=== PATIENT | female | born 1960 | race Caucasian/White ===

== ENCOUNTER 2018-06-16 08:50 | Day surgery (SDC) | payer BC ==
[~2018-06-16] VITALS: Ht 175.3 cm; Wt 102.1 kg
--- NOTE | ~2018-06-16 | OR ---
[facility] [address] [place] [place], [place] [address] Draft DATE OF OPERATION: 06/16/2018 SURGEON: Elmer Flower DPM PREOPERATIVE DIAGNOSIS: Diabetic ulcer with abscess/cellulitis, left foot. POSTOPERATIVE DIAGNOSIS: Diabetic ulcer with abscess/cellulitis, left foot. PROCEDURE PERFORMED: Deep debridement, left foot. PATTERN CARRIER SURGEON: Denae Pérez DPM ANESTHESIA: IV general with local block left foot using 14 mL, 1:1 mixture 2% lidocaine plain with 0.5% ropivacaine plain. PRECISION GRINDER EXTERNAL: Lele Ball. SPECIMEN TO PATHOLOGY: Aerobic and anaerobic cultures of the deep wound site, left foot. DESCRIPTION OF PROCEDURE: The patient was brought into the operating room and placed on table in the supine position. Anesthesia department administered IV sedation after which a local block was given to the left foot as indicated. The left foot was then prepped and draped in the usual sterile manner and an Esmarch was used for hemostasis. Attention was initially directed to the ulcer site at the web space between hallux and 2nd digit. The ulcer site was probed and noted to communicate with a plantar ulcer at the 2nd metatarsal head area and incision was then made connecting the two ulcer sites revealing a large amount of necrotic tissue within the foot. The incision was then also extended from the ulcer at the web space between hallux and 2nd digit dorsally onto the 1st intermetatarsal space, creating an open area from dorsal to plantar through the foot. Using hand instrumentation, a large amount of necrotic tissue was debrided, then intermittently irrigated with the power lavage, and then additional debridement PATIENT NAME: ASIYA ERIC OPERATIVE REPORT DATE OF : 64 REPORT #: [id number] PHYSICIAN: ELMER FLOWER DPM PCP: JOSE LUIS MIRELES REPORT IS CONFIDENTIAL AND NOT TO BE RELEASED WITHOUT AUTHORIZATION [facility] [address] [place] [place], [place] [address] Draft performed as necessary. The surgical site was then inspected again for any additional necrotic tissue and a small amount of purulent drainage noted within the plantar aspect of the wound from a proximal direction. Another ulcer site was present on the plantar aspect of the foot proximal to 1st metatarsal head, this was then connected to the proximal end of the plantar incision opening the plantar aspect further proximally where additional necrotic tissue was found. Necrotic tissue was also throughout the area under 1st metatarsal head and 2nd metatarsal head and extending out to base of 2nd digit and hallux. The incision was also extended a little further on the dorsum of the foot to fully expose area of necrotic tissue dorsally as well. At this time, the remainder of the power irrigation was used to fully irrigate the debrided wound site. A total of 3 L of irrigation was used and at this point necrotic tissue appeared to be eliminated and wound site was ready for closure and dressing. The plantar and dorsal aspects of the incision were loosely closed with 3-0 nylon monofilament suture using a few simple interrupted sutures. The incision was left entirely open between the 1st and 2nd digits, only dorsal and plantar aspects were closed. The calcium sulfate beads were used with the addition of vancomycin using approximately one-third of a gram of vancomycin in the calcium sulfate bead mixture and several of the antibiotic beads were added to the wound site prior to placement of the dressings. INTRAOPERATIVE COMPLICATIONS: None. ESTIMATED BLOOD LOSS: Less than 50 mL. Dressings were applied using Adaptic dorsally and plantarly, covered with dry gauze and dry gauze in between hallux and 2nd digit. An ABD pad also added to the plantar aspect of the foot, then secured with lexicon and Coban. The patient tolerated the procedure and the anesthesia well and left the operating room with vital signs stable. The left 2nd digit was very dark and dusky in appearance in the OR, however, in the recovery room, there appeared to be additional and improved color to the toe, but it does appear as though there is significant vascular damage to the 2nd digit. Elmer Flower DPM DFB/MODL PATIENT NAME: ASIYA ERIC OPERATIVE REPORT DATE OF : 64 REPORT #: [id number] PHYSICIAN: ELMER FLOWER DPM PCP: JOSE LUIS MIRELES REPORT IS CONFIDENTIAL AND NOT TO BE RELEASED WITHOUT AUTHORIZATION [facility] [address] [place] [address] Oksana Olvera [address] Draft /[id number] Copies: ~ PATIENT NAME: ASIYA ERIC OPERATIVE REPORT DATE OF : 64 REPORT #: [id number] PHYSICIAN: ELMER FLOWER DPM PCP: JOSE LUIS MIRELES REPORT IS CONFIDENTIAL AND NOT TO BE RELEASED WITHOUT AUTHORIZATION
[~2018-06-16 08:50] MED LIST: ALPHAGAN P5 M1 OPTH; ASPIRIN325 MG PO; CARVEDILOL25 MG PO; CIPRO500 MG PO; CLINDAMYCIN HC300 MG PO; LEVEMIR100 UNIT/1 SUB-Q; LIPITOR40 MG PO; LISINOPRIL20 MG PO; METFORMIN HCL1000 MG PO; NOVOLOG FL100 UNIT/1 SUB-Q; VITAMIN D32000 UNI1 PO
--- NOTE | 2018-06-16 11:09 | NUR ---
HARD IV START. WAS HOT PACKED AND STILL TOOK SEVERAL TIMES TO GET. PRANEETH WELL.
--- NOTE | 2018-06-16 12:17 | NUR ---
BLOOD GLUCOSE 214 HAS HAD ABX. PREOPS GIVEN. VS P 62 R 16 SAT RA 100% BP 151/65. STATES THIS IS FIRST TIME DOESNT FEEL NAUSEATED.
--- NOTE | 2018-06-16 12:55 | NUR ---
PAIN AT 7/10 CRYING MORPHINE 4MG GIVEN IV.
--- NOTE | 2018-06-16 14:13 | NUR ---
HAS BEEN UP TO BATHROOM. HAS BEEN IN AND TOOL MAINTENANCE TECHNICIAN. VERSED GIVEN. RAILS UP AT BEDSIDE.
--- NOTE | 2018-06-16 15:51 | NUR ---
06/16/18 1551 Kristi Duque 1531 PT ARRIVED TO PACU WITH ORAL AIRWAY IN PLACE, RESP EVEN AND UNLABORED. 1536 PT WOKE TO TACTILE STIMULI AND ORAL AIRWAY WAS REMOVED. PT ENCOURAGED TO DEEP BREATH AND COUGH. PT DENIES PAIN AND NAUSEA. 1542 O2 MASK REMOVED. PT REPORTS FOOT IS NUMB AND EDUCAITON GIVEN ON BLOCK. SECOND TOE IS DARK IN COLOR AND SYNTHETIC RESIN OPERATOR REPORTED THIS BASELINE. LEFT FOOT ELEVATED ON PILLOW, PT ABLE TO MOVE FOOT, CMS IN 1ST TOE IS WNL.
== END 2018-06-16 16:20 | disposition home or self-care (01) ==
LOC: OPS 08:50 → DS 08:50 → OPS 11:45 → DS 11:45 → OPS 16:20
PROVIDERS: Podiatrist Foot Surgery
PROC: 0JBR0ZZ Excision of Left Foot Subcutaneous Tissue and Fascia, Open Approach (ICD-10-PCS; principal; 2018-06-16 11:45)
DX: E11.621 Type 2 diabetes mellitus with foot ulcer (principal); L97.523 Non-pressure chronic ulcer of other part of left foot with necrosis of muscle; L03.116 Cellulitis of left lower limb; L02.612 Cutaneous abscess of left foot; E11.40 Type 2 diabetes mellitus with diabetic neuropathy, unspecified; Z79.4 Long term (current) use of insulin; Z79.899 Other long term (current) drug therapy
CPT/HCPCS: 01462; 87070; 87075; 87077; 87186; 87205; J1100; J1885; J2250; J2405; J2704; J2765; J2795; J3010; J3370; J7120

== ENCOUNTER 2018-07-09 05:50 | Day surgery (SDC) | payer BC ==
[~2018-07-09] VITALS: Ht 175.3 cm; Wt 102.1 kg
--- NOTE | ~2018-07-09 | OR ---
[facility] [address] [place], [place] [address] Draft DATE OF OPERATION: 07/09/2018 SURGEON: Elmer Mckeon DPM PREOPERATIVE DIAGNOSIS: Diabetic ulcer with osteomyelitis, left foot. POSTOPERATIVE DIAGNOSIS: Diabetic ulcer with osteomyelitis, left foot. ANESTHESIA: IV general with local block left foot. MUSEUM CURATOR: Cris Angel. SPECIMEN TO PATHOLOGY: Bone and soft tissue from debridement left foot including aerobic and anaerobic cultures. PROCEDURE: Debridement left foot including toes 1-5 left foot and metatarsal heads 1-4 left foot. DESCRIPTION OF PROCEDURE: Attention was initially directed to the base of the toes, left foot where an elliptical incision was made across the base of toes 2-5. The incision was deep to bone and soft tissues were reflected proximally, dorsally, and plantarly to expose the base of the proximal phalanges and to disarticulate the toes at the metatarsophalangeal joints. With this process, the base of the proximal phalanx, left 2nd digit fell apart. The bone at this site was crumbly due to the effect of osteomyelitis. With toes 2-5 disarticulated and removed, the crumbly section of the base of the proximal phalanx left 2nd digit was used for aerobic and anaerobic cultures. Attention was then directed to the hallux. The hallux and the lesser toes were by an open incision between hallux and 2nd digit from a previous debridement procedure. The incision was made around the hallux about the mid shaft of the proximal phalanx and the soft tissues were reflected proximally to expose the metatarsophalangeal joint. The toe was then disarticulated and the hallux then removed entirely. At this stage, the remaining soft tissues were evaluated, a large amount of necrotic tissue noted around the metatarsophalangeal joint, mainly joints 1-4. Soft tissue debridement was begun at this point and soft tissues were reflected additionally proximally to further expose the distal aspect of the metatarsals. PATIENT NAME: ASIYA ERIC OPERATIVE REPORT DATE OF : 64 REPORT #: [id number] PHYSICIAN: ELMER MCKEON DPM PCP: JOSE LUIS MIRELES REPORT IS CONFIDENTIAL AND NOT TO BE RELEASED WITHOUT AUTHORIZATION [facility] [address] [place], [place] [address] Draft A preoperative MRI had shown not only was osteomyelitis present to all of the toes, but also to the metatarsals 1-4 involving a small amount of the 1st metatarsal head, 22 mm of the distal 2nd metatarsal, then metatarsal heads 3 and 4. Following this evaluation, this portion of the metatarsal heads were resected. This noted to provide solid unaffected appearing bone to the osteotomy areas, which should provide a good result for the debridement. The surgical site then irrigated with copious amounts of normal saline. Additional debridement performed again because of a large amount of necrotic tissue noted particularly within the plantar space under the metatarsals, but no kanika purulence or odor noted. Following additional debridement, irrigation was then used again and inspection made for any additional necrotic tissue or exposed tendon, which was then resected as well as plantar plate structures from the metatarsal head area and the sesamoid apparatus from the 1st metatarsal area. A total of 3 L of power irrigation was used. At this time, surgical site was closed. Modification was made to the skin margins to assist with closure, but the skin margins were able to be closed without tension on the skin margins and this was closed nearly entirely a small area of incision was left open. This was the dorsal portion of the previous incision between 1st and 2nd metatarsals. This area was then used for quarter-inch plain Nu Gauze packing. Calcium sulfate antibiotic beads were also used within the surgical site prior to closure and surgical sites were closed with 3-0 nylon monofilament suture. Dressings applied consisting of Adaptic, Betadine-soaked gauze, dry gauze, Kerlix fluffs, lexicon, and an ABD pad with Coban for compression and to secure the dressings. INTRAOPERATIVE COMPLICATIONS: None. ESTIMATED BLOOD LOSS: Less than 20 mL. The patient tolerated the procedure and the anesthesia well and left the operating room with vital signs stable. Elmer Mckeon DPM DFB/MODL /[id number] PATIENT NAME: ASIYA ERIC OPERATIVE REPORT DATE OF : 64 REPORT #: [id number] PHYSICIAN: ELMER MCKEON DPM PCP: JOSE LUIS MIRELES REPORT IS CONFIDENTIAL AND NOT TO BE RELEASED WITHOUT AUTHORIZATION [facility] [address] [place] [id number] Draft Copies: ~ PATIENT NAME: ASIYA ERIC OPERATIVE REPORT DATE OF : 64 REPORT #: [id number] PHYSICIAN: ELMER MCKEON DPM PCP: JOSE LUIS MIRELES REPORT IS CONFIDENTIAL AND NOT TO BE RELEASED WITHOUT AUTHORIZATION
[~2018-07-09 05:50] MED LIST changes: +AMOX TR-K CLV1 EACH PO; +DOXYCYCLINE HY100 MG; +ONDANSETRON ODT8 MG PO
--- NOTE | 2018-07-09 09:22 | NUR ---
PT IS RESTING-ALERT, ORIENTED AND SUPPORTED BY HER SLOANE. SHE SEEMED INFORMED, SLOANE WELL. PT REQUESTED PRAYER, WILL FOLLOW NEEDED
--- NOTE | 2018-07-09 09:51 | NUR ---
07/09/18 0950 Ramandeep Bellamy 0936 PATIENT ARRIVES TO PACU AWAKE, BUT DROWSY, REPORTS MINIMAL PAIN. RESP EVEN AND UNLABORED, ARRIVES TO PACU ON ROOM AIR AT 99%. PATIENT HAS BULKY DRESSING WITH COBAN TO LEFT FOOT, DRESSING DRIPPING BLOOD AND A STEADY RATE, DR FLOWER TO BEDSIDE WITH DRESSING REINFORCED WITH MORE COBAN. FOOT ELEVATED. 0950 PATIENT RESTING WITH EYES CLOSED. AWAKE OFF/ON. PATIENT DENIES PAIN OR NAUSEA. BLEEDING CONTROLLED TO LEFT FOOT.
--- NOTE | 2018-07-09 10:36 | NUR ---
PT IS BACK TO DS FOR OBSERVATION. PT'S FOOT WAS BLEEDING POST-OP IN RECOVERY. DR. FLOWER WOULD LIKE PT TO HANG OUT FOR ABOUT AN HOUR THEN REDRESS THE AREA AND OBSERVE FOR ACTIVE BLEEDING. PT IS TOLERATING SIPS OF WATER. WILL REASSESS WITHIN THE HOUR.
--- NOTE | 2018-07-09 11:37 | NUR ---
DRESSING IS TAKEN DOWN TO ASSESS IF THE SITE IS STILL ACTIVELY BLEEDING. THERE IS SOME LIGHT PINK DRAINAGE, NOTHING SIGNIFICANT. NEW ADAPTIC IS PLACED OVER SUTURES, FOLLOWED BY GAUZE, FLEXICON, ABD PAD, KERLEX, CAST PADDING, AND COBAN. DR. FLOWER IS CALLED, LEFT MESSAGE WITH MANAGER SCIENTIFIC TO HAVE HIM CALL ME BACK.
--- NOTE | 2018-07-09 13:06 | NUR ---
LE 1210: PT HAS MET DC CRITERIA. DR. FLOWER IS GIVEN REPORT ON WHAT WAS FOUND DURING DRESSING CHANGE AND HE IS AREEABLE THAT SHE SHOULD GO HOME. HE ASKS TO EMPHASIZE THAT THE PT DO NOT PUT ANY WEIGHT ON THAT FOOT TO PREVENT IT FROM REBLEEDING. DC INSTRUCTIONS ARE GIVEN TO THE PT WITH THE IN THE ROOM. THEY BOTH VERBALIZE UNDERSTANDING. SHE AND ARE EDUCATED ON HOW BEST TO DRESS. PASTOR DAWSON STOPS BY TO VISIT BEFORE SHE IS TAKEN HOME. SHE IS THEN TAKEN TO THE VEHICLE VIA WHEELCHAIR AND HELPED INTO THE CAR.
== END 2018-07-09 12:50 | disposition home or self-care (01) ==
LOC: DS 05:50
PROVIDERS: Podiatrist Foot Surgery
PROC: 0Y6Y0Z0 Detachment at Left 5th Toe, Complete, Open Approach (ICD-10-PCS; 2018-07-09)
PROC: 0Y6W0Z0 Detachment at Left 4th Toe, Complete, Open Approach (ICD-10-PCS; 2018-07-09)
PROC: 0Y6U0Z0 Detachment at Left 3rd Toe, Complete, Open Approach (ICD-10-PCS; 2018-07-09)
PROC: 0Y6S0Z0 Detachment at Left 2nd Toe, Complete, Open Approach (ICD-10-PCS; 2018-07-09)
PROC: 0Y6Q0Z0 Detachment at Left 1st Toe, Complete, Open Approach (ICD-10-PCS; principal; 2018-07-09 06:45)
DX: E11.69 Type 2 diabetes mellitus with other specified complication (principal); M86.172 Other acute osteomyelitis, left ankle and foot; E11.621 Type 2 diabetes mellitus with foot ulcer; L97.523 Non-pressure chronic ulcer of other part of left foot with necrosis of muscle; E66.9 Obesity, unspecified; L03.116 Cellulitis of left lower limb; E11.40 Type 2 diabetes mellitus with diabetic neuropathy, unspecified; Z79.2 Long term (current) use of antibiotics; Z79.4 Long term (current) use of insulin; Z68.33 Body mass index [BMI] 33.0-33.9, adult; Z79.891 Long term (current) use of opiate analgesic; Z79.899 Other long term (current) drug therapy
CPT/HCPCS: 01482; 73630; C1713; J1100; J1885; J2250; J2405; J2704; J2795; J3010; J3370; J7050; J7120

== ENCOUNTER 2020-10-23 01:57 | Emergency (ER) | payer OTHER ==
[~2020-10-23] VITALS: Ht 175.3 cm; Wt 102.1 kg
[~2020-10-23 01:57] MED LIST changes: +ASPIR 8181 MG PO; +IRON325 M1 PO
[2020-10-23] MEDS ORDERED: ASPIRIN325 MG PO (03:13)
--- NOTE | 2020-10-24 11:09 | EKG ---
[facility] [address] [facility] [place] [address] Signed Normal sinus rhythm Nonspecific intraventricular block Cannot rule out Inferior infarct , age undetermined Abnormal ECG When compared with ECG of 27-JUN-2018 10:30, Minimal criteria for Inferior infarct are now present QT has lengthened Confirmed by MARIO ALBERTO MCFARLAND MD ([id number]) on 10/24/2020 11:09:02 AM Electronically Signed By: MARIO ALBERTO MCFARLAND MD 10/24/20 1109 PATIENT NAME: ASIYA ERIC Electrocardiogram DATE OF : 64 PHYSICIAN: MARIO ALBERTO MCFARLAND MD REPORT #: [id number] REPORT IS CONFIDENTIAL AND NOT TO BE RELEASED WITHOUT AUTHORIZATION
== END 2020-10-23 04:49 | disposition short-term general hospital (02) ==
LOC: ED 01:57
DX: I62.00 Nontraumatic subdural hemorrhage, unspecified (principal); R56.9 Unspecified convulsions; D69.6 Thrombocytopenia, unspecified; I10 Essential (primary) hypertension; I25.2 Old myocardial infarction; E11.9 Type 2 diabetes mellitus without complications; Z79.899 Other long term (current) drug therapy; Z79.82 Long term (current) use of aspirin; Z79.4 Long term (current) use of insulin
CPT/HCPCS: 51702; 70450; 71045; 80053; 81001; 85025; 85610; 85730; 93005; 93010; 99285-25; C9803; G0480; J1953; J2405; J7060; U0003

== ENCOUNTER 2021-02-01 12:05 | Inpatient (IN) | payer OTHER ==
[~2021-02-01] VITALS: Ht 175.3 cm; Wt 100.0 kg
--- NOTE | 2021-02-01 12:32 | NUR ---
RT COLLECTED COVID 19 SWAB WITH NO COMPLICATIONS. RT USED THE CEPHEID RAPID TEST THROUGH [facility] PER DR REQUEST AT THIS TIME.
[2021-02-01] MEDS ORDERED: LEVOTHYROXINE112 MC1 PO (13:13)
[2021-02-01] MEDS ORDERED: KEPPRA500 MG PO (13:14)
[2021-02-01] MEDS ORDERED: PROZAC20 MG PO (13:14)
[2021-02-01] MEDS ORDERED: VITAMIN C WITH500 MG PO (13:15)
[2021-02-01] MEDS ORDERED: COQ-10100 MG (13:15)
[2021-02-01] MEDS ORDERED: ALDACTAZIDE 251 EACH PO (13:16)
[2021-02-01] MEDS ORDERED: ZIAC 2.5-6.25 MG1 EA PO (13:16)
--- NOTE | 2021-02-01 14:53 | NUR ---
02/01/21 1452 Ramandeep Bellamy 1447 PATIENT ARRIVES TO PACU UNRESPONSIVE TO PAIN. ORAL AIRWAY IN PLACE. RESP EVEN AND UNLABORED, MASK AT 6 LITERS.
--- NOTE | 2021-02-01 15:50 | NUR ---
PATIENT ARRIVED AT 1530. REPORT RECIEVED FROM JOSE PACU, RN. DR. WINKLER NOTIFIED THAT PATIENT IS ON MED SURG. DR. FLOWER IS ALSO ON MED SURG. PATIENT IS RESTING IN BED WITH RIGHT FOOT ELEVATED ON 2 PILLOWS. RIGHT FOOT DRESSING IS CDI.
--- NOTE | 2021-02-01 15:56 | NUR ---
DR. FLOWER IN TO SEE PATIENT BRIEFLY. DR. WINKLER IN TO SEE PATIENT.
--- NOTE | 2021-02-01 16:00 | NUR ---
PATIENT ASSESSMENT pt assessment complete, VSS. pt alert and oriented x4. pt discussing cares with MD Hurd at this time. pt o2sat at 100% on 2L NC. pt titrated down to RA and maintaining 100%. pt in bed, table and call light within reach. at bedside.
[2021-02-01] MEDS ORDERED: AUGMENTIN 875-1 EACH PO (16:11)
[2021-02-01] MEDS ORDERED: PROZAC10 MG PO (16:19)
--- NOTE | 2021-02-01 16:30 | NUR ---
HOURLY VITALS + ROUNDING pt in bed, visiting with and watching TV. pt breathing even and unlabored, VSS, and o2sat 95% on RA. pt denies pain and nausea at this time. table and call light within reach.
[2021-02-01] MEDS ORDERED: CLEOCIN HCL300 MG PO (17:15)
--- NOTE | 2021-02-01 17:18 | NUR ---
MED REC COMPLETE
--- NOTE | 2021-02-01 17:30 | NUR ---
HOURLY VITALS + MED PASS pts CBG was 306, 9 units given per sliding scale orders. pt VSS. pt given jello and crackers to start trying foods slowly. pt encouraged to take them slow, and to call with nausea. pt does not want to order anything for dinner. pt in bed, table and call light within reach.
--- NOTE | 2021-02-01 19:31 | NUR ---
BEDSIDE REPORT RECEIVED FROM CARLITA YANG. pt SITTING UP IN BED. RIGHT LEG ELEVATED. SCD ON LEFT LEG. REQUESTING SANDWICH BOX. BRANCH OPERATIONS MANAGER NOTIFIED AND CALLING LINTER TENDER. NO ADDITIONAL REQUESTS.
--- NOTE | 2021-02-01 20:00 | NUR ---
DELIVERED SANDWICH BOX TO ROOM PER PRIMARY RN'S REQUEST. PT DENIES FURTHER NEEDS OR CONCERNS AT THIS TIME. CALL LIGHT IS CLOSE.
--- NOTE | 2021-02-01 20:41 | NUR ---
pt ASSESSMENT COMPLETE. VSS. pt DENIES ANY PAIN. NUMBNESS IN PARTS OF RIGHT FOOT, SENSATION IN TOES PER pt. CAP REFILL <3. pt DENIES NAUSEA. SCHEDULED MEDICATIONS ADMINISTERED. IV SITE FLUSHED WNL. IV ANTIBIOTIC INFUSING. CALL LIGHT IN REACH. RIGHT LEG ELEVATED. SCD ON LEFT LEG.
--- NOTE | 2021-02-01 23:36 | NUR ---
CHECKED ON pt. RESTING IN BED ON RIGHT SIDE. RIGHT LEG ELEVATED ON PILLOWS. EYES CLOSED, BREATHING UNLABORED.
--- NOTE | 2021-02-02 02:10 | NUR ---
CALL LIGHT ANSWERED. 1P SBA TO PIVOT TO BSC WITH FWW FOR VOID AND SMALL FORMED BROWN BM. pt NON-WEIGHT BEARING ON RIGHT FOOT. BACK IN BED, ABLE TO REPOSITION SELF INDEPENDENTLY. SCD ON LEFT LEG. RIGHT LEG ELEVATED ON PILLOWS. IVF ANTIBIOTIC INFUSING WNL ORDERED. pt C/O 2/10 THROBBING IN RIGHT FOOT, "DULL" WHEN ELEVATED ON PILLOWS. VSS. CALL LIGHT IN REACH. LIGHTS OFF IN ROOM.
--- NOTE | 2021-02-02 06:50 | NUR ---
pt AWAKE WATCHING TV IN BED. VSS. pt PROVIDED WITH BREAKFAST MENU. STATES SHE WILL LOOK AT MENU THEN GET UP TO RESTROOM. CALL LIGHT IN REACH.
--- NOTE | 2021-02-02 07:30 | NUR ---
SHIFT REPORT FROM JANNA ZAZUETA INCLUDED: pt had an episode of pain that was tx with tylenol and resolved through the rest of the night and she slept well. pt had an otherwise uneventful evening. uses call light appropriately, and voided sufficient quantities. pt currently in bed, denies pain and nausea at this time. table and call light within reach.
--- NOTE | 2021-02-02 08:30 | NUR ---
ROUNDING pt enjoying the last of her breakfast and visiting with her . pt denies needs at this time. table and call light within reach.
--- NOTE | 2021-02-02 09:30 | NUR ---
ROUNDING pt watching TV and visiting with her . pt denies needs at this time. table and call light within reach.
--- NOTE | 2021-02-02 10:00 | NUR ---
ROUNDING pt lying in bed, visiting with . pt denies pain and nausea at this time. pt denies further needs. table and call light within reach.
--- NOTE | 2021-02-02 11:30 | NUR ---
CBG pts CBG was 273, 7 units due. pt denies further needs at this time. pt in bed, table and call light within reach.
--- NOTE | 2021-02-02 12:30 | NUR ---
ROUNDING pt eating lunch with her at this time. denies pain, nausea, and needs. table and call light within reach.
--- NOTE | 2021-02-02 13:12 | NUR ---
PATIENT SITTING UP IN BED WATCHING TV. SPOUSE AT BEDSIDE. VITALS AND I&OS DOCUMENTED. PATIENT REFUSED SHOWER TODAY. CALL LIGHT IN REACH. NO FURTHER NEEDS AT THIIS TIME.
--- NOTE | 2021-02-02 13:30 | NUR ---
ROUNDING pt resting in bed at this time. breathing even and unlabored, reports needs at this time. table and call light within reach.
--- NOTE | 2021-02-02 14:30 | NUR ---
MED PASS pt resting in bed at this time. able to wake for med pass. pt getting IV ABX infusion as ordered. pt reports 3/10 pain and denies nausea. pt reports no needs at this time. table and call light within reach.
--- NOTE | 2021-02-02 15:17 | NUR ---
ROUNDING pt in bed, eyes closed, breathing even and unlabored, table and call light witin reach.
--- NOTE | 2021-02-02 17:20 | NUR ---
MED PASS + CBG pts CBG was 206, 5 units insulin administered per sliding scale orders. pt also getting scheduled atorvastatin. pt able to take all meds without difficulty. pt denies needs at this time. pt anticipating dinner. table and call light within reach.
--- NOTE | 2021-02-02 19:05 | NUR ---
SHIFT REPORT RECEIVED FROM TREY ZAZUETA. PT UP IN CHAIR WATCHING TV. DENIES PAIN. NO NEEDS AT THIS TIME. CALL LIGHT IN REACH.
--- NOTE | 2021-02-02 20:45 | NUR ---
ASSESSMENT COMPLETED. SCHEDULED MEDS PROVIDED. PT DENIES PAIN. SHE HAS NUMBESS IN BOTH FEET, PULSE AND MOTOR INTACT. RLE DRESSING CDI. GCS 15, A&O X4. LUNGS CLEAR, HEART TONES REGULAR. ABD SOFT, NONTENDER, BOWEL TONES ACTIVE. CMS INTACT IN BUE. IV WNL, CDI, FLUSHED WELL. ICE WATER PROVIDED. NO OTHER NEEDS AT THIS TIME. CALL LIGHT IN REACH.
--- NOTE | 2021-02-03 | NUR ---
PT RESTING IN BED, EYES CLOSED. RR EVEN, UNLABORED. CALL LIGHT IN REACH.
--- NOTE | 2021-02-03 00:55 | NUR ---
IN TO SBA PT WITH FWW TO THE TOILET NO FURTHER NEEDS AT THIS TIME
--- NOTE | 2021-02-03 02:30 | NUR ---
SCHEDULED MED PROVIDED. ASSESSMENT COMPLETED. PT DENIES PAIN. NUMBNESS PRESENT IN FEET. MOTOR AND PULSE INTACT. DRESSING CDI. NO OTHER NEEDS. CALL LIGHT IN REACH.
--- NOTE | 2021-02-03 05:19 | NUR ---
PT UP TO BR, FWW, BACK TO BED. SCHEDULED MED PROVIDED. RLE PAIN 12/09, PRN PAIN MED PROVIDED. ICE WATER PROVIDED. VS AND I&O COMPLETED. NO OTHER NEEDS. CALL LIGHT IN REACH.
--- NOTE | 2021-02-03 07:30 | NUR ---
SHIFT REPORT FROM ZANE ZAZUETA INCLUDED: pt had an uneventful evening. pts VSS. pt slept most of the night. pt currently in bed, table and call light within reach.
--- NOTE | 2021-02-03 09:00 | NUR ---
MED PASS + ASSESSMENT pt assessment complete, VSS. pt denies pain and nausea. pt able to take all meds as ordered. pt denies further needs at this time. table and call light within reach.
--- NOTE | 2021-02-03 10:00 | NUR ---
ROUNDING pt in bed, visiting with family. pt reports 0/10 pain and denies nausea. pt denies further needs at this time. table and call light within reach.
--- NOTE | 2021-02-03 10:03 | NUR ---
PATIENT IS SITTING UP IN HER CHAIR USING HER TABLET. FRESH ICE WATER OFFERED. VITALS AND I&OS ARE DONE AND DOCUMENTED. CALL LIGHT IS IN REACH. NO FURTHER NEEDS AT THIS TIME.
--- NOTE | 2021-02-03 12:00 | NUR ---
ROUNDING pt given fresh water. pt was given 5 units of insulin per sliding scale. pt in bed, visiting with family. pt reports 0/10 pain and denies nausea. pt denies further needs at this time. table and call light within reach.
--- NOTE | 2021-02-03 15:00 | NUR ---
ASSUMED CARE OF PT AT THIS TIME.
--- NOTE | 2021-02-03 15:07 | NUR ---
PT IS LARA SITTING UP IN ROOM VISITING WITH , ASKED IF SHE CAN HAVE TYLENOL FOR 2/10 PAIN IN FOOT, STATES SHE IS EXPECTING DR FLOWER TO BE IN THIS AFTERNOON. DENIES FURTHER NEEDS. CALL LIGHT IN EASY REACH.
--- NOTE | 2021-02-03 17:26 | NUR ---
PATIENT IS SITTING UP IN BED WATCHING TV. AT BEDSIDE. FRESH WATER GIVEN. VITALS AND I&OS ARE DONE AND DOCUMENTED. CALL LIGHT IS IN REACH. NO FURTHER NEEDS AT THIS TIME.
--- NOTE | 2021-02-03 19:05 | NUR ---
SHIFT REPORT RECEIVED FROM DAYSNYFT CARLITA HOWARD AT BEDSIDE. pt AWAKE AND RESTING IN CHAIR, SALINE LOCKED. RIGHT FOOT DRESSING C/D/I, ABD PAD, CAST PADDING, AND COBAN NOTED. pt DENIES NEEDS OR CONCERNS, CALL LIGHT IN REACH. INDEPENDENT IN ROOM.
--- NOTE | 2021-02-03 20:56 | NUR ---
ROUNDED CHARGE. VSS. SBA WITH FWW TO RESTROOM FOR VOID AND BACK TO CHAIR. LEGS ELEVATED. pt DENIES PAIN AT THIS TIME. CALL LIGHT WITHIN REACH. TRAY TABLE CLEARED. NO ADDITIONAL REQUESTS AT THIS TIME.
--- NOTE | 2021-02-03 21:00 | NUR ---
ASSESSMENT COMPLETE, SCHEDULED MEDS GIVEN. ACCUCHECK RESULT:[id number]. INSULIN SS AND HS LANTUS DOUBLE CHECKED WITH SHAYY SALDIVAR. pt VERBALIZES UNDERSTANDING REGARDING S/SX OF HYPOGLYCEMIA, pt UNDERSTANDS TO CALL IF S/SX APPEAR. RLE DRESSING UNCHANGED SINCE START OF SHIFT, C/D/I. UNABLE TO ASSESS PEDAL PULSE D/T DRESSING, SKIN WARM TO THE TOUCH AND PINK IN COLOR. pt REPROTS BASELINE NUMBNESS AND TINGLING IN BLE R/T NEUROPATHY, ABLE TO WIGGLE TOUCH AND FEEL WHEN FOOT/TOES ARE TOUCHED. VSS, DENIES PAIN AND NAUSEA. NO FURTHER NEEDS, CALL LIGHT IN REACH. RESTING IN CHAIR.
--- NOTE | 2021-02-03 21:24 | NUR ---
IN ROOM TO COSIGN INSULIN. pt INDEPENENT BACK TO BED FROM CHAIR. REFUSING SCD AT THIS TIME STATES "I FEEL TOO ATTACHED WHEN I SLEEP". FEET ELEVATED ON PILLOWS IN BED. CALL LIGHT IN REACH. NO ADDITIONAL REQUESTS.
--- NOTE | 2021-02-03 23:22 | NUR ---
RESTING QUIETLY IN BED, pt FACING WINDOW. RR EVEN AND UNLABORED, NO DISTRESS NOTED. CALL LIGHT IN REACH.
--- NOTE | 2021-02-04 01:27 | NUR ---
pt RESTING IN BED, EYES CLOSED WITH EVEN AND UNLABORED RESPIRATIONS. NO DISTRESS NOTED. CALL LIGHT IN REACH. RLE ELEVATED IN BED.
--- NOTE | 2021-02-04 04:25 | NUR ---
SCHEDULED IV VANCO INFUSING PER MD ORDERS, IV SITE WNL. FLUSHES EASILY. pt DROWSY, BUT EASILY AWOKE TO VOICE. ASSESSMENT COMPLETE, NO NEW CHANGES OR CONCERNS. DRESSING TO RLE REMAINS C/D/I, UNABLE TO ASSESS PEDAL PULSE D/T DRESSING. PULSE NOTED TO TOP OF RIGHT BIG TOE, SKIN WARM TO THE TOUCH AND PINK IN COLOR. NO NEEDS VERBALIZED. CALL LIGHT IN REACH.
--- NOTE | 2021-02-04 06:28 | NUR ---
MRI SCREENING FORM COMPLETED AND ATTACHED TO FRONT OF CHART. DR FLOWER IN ROOM TO ASSESS RIGHT FOOT WOUND.
--- NOTE | 2021-02-04 07:10 | NUR ---
BEDSIDE HANDOFF REPORT RECEIVED FROM DIVISION ROADMASTER RN. PT SLEEPING, LEFT UNDISTURBED.
--- NOTE | 2021-02-04 08:15 | NUR ---
PT SITTING IN CHAIR, LEGS ELEVATED. PT ON ROOM AIR, LUNG SOUNDS CLEAR, DENIES SOB. PT STATES PAIN IS FINE THIS MORNING. BOWEL TONES ACTIVE, DENIES NAUSEA, GIVEN 5 UNITS SS HUMALOG FOR BLOOD GLUCOSE 219. IV SALINE LOCKED. PT REPORT OF NUMBNESS IN BLE, HX NEUROPATHY, AT BASELINE. DRESSING TO RIGHT FOOT, CDI, BRISK CAP REFILL, UNABLE TO ASSESS PEDAL PULSE. VSS. DISCUSSED PLAN OF CARE FOR THE DAY, PLAN FOR MRI AND PT WOULD LIKE TO SHOWER. PT DENIES OTHER NEEDS AT THIS TIME.
--- NOTE | 2021-02-04 09:00 | NUR ---
Spoke with Shira and she states she cont. to live in a modular home on [address] with her spouse. There are 4 steps in and she does not have issues getting in and out. She cont. to work at [employer] and plans on retiring in 2 more years. 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 She does not use [employer] at home. She plans on dc to home when clear ed medically and will cont. to follow up with Dr. Mckeon for podiatry. She has used crutches in the past, but would like a walker to use at home as she is to be primarily nonwt bearing.. She denies financial concerns, is working toward shelter.
--- NOTE | 2021-02-04 09:14 | NUR ---
WENT TO GIVE PT TYLENOL REQUESTED. FOUND PT TO BE THROWING UP IN HER BLANKET. GIVEN EMESIS BAG AND NEW BLANKET. ADMINSITERED ZOFRAN AND HELD TYLENOL FOR NOW. OT WILL COME BACK LATER TO WORK WITH PT. CITY SUPERINTENDENT GAVE WARM WASHCLOTH.
--- NOTE | 2021-02-04 11:22 | NUR ---
PATIENT IS SITTING UP IN HER CHAIR. VITALS AND I&OS ARE DONE AND DOCUMENTED. FRESH WATER GIVEN. CALL LIGHT IS IN REACH. NO FURTHER NEEDS AT THIS TIME.
--- NOTE | 2021-02-04 12:45 | NUR ---
PT RETURNED FROM MRI. LUNCH PROVIDED, PT BLOOD GLUCOSE 236, GIVEN 7 UNITS HUMALOG. PT DENIES OTHER NEEDS AT THIS TIME, VISITING WITH FAMILY.
--- NOTE | 2021-02-04 13:42 | NUR ---
PT ALERT, ORIENTED AND SITTING IN CHAIR. PT IS FRIENDLY, FEELS WELL CARED FOR AND HAS NO QUESTIONS REGARDING POC. HAD PLEASANT VISIT, EXPRRESSED UNHAPPINESS AT HOW THIS WOUND WON'T HEAL, AND KEEPS INTERFERRING WITH HER LIFE AND WORK. HAD PRAYER WITH PT, LEFT G.POST AND BLESSING. WILL FOLLOW
--- NOTE | 2021-02-04 15:54 | NUR ---
IV SITE ASSESSED, PATENT. IV VANCO INFUSING. PT STATES PAIN IS TOLERABLE AT THIS TIME. PT DENIES OTHER NEEDS AT THIS TIME.
--- NOTE | 2021-02-04 17:29 | NUR ---
IV SALINE LOCKED. PT GIVEN 3 UNITS SS HUMALOG FOR BLOOD GLUCOSE 148. DR. BRADLEY TO BEDSIDE AND COMPLETED DRESSING CHANGE.
--- NOTE | 2021-02-04 18:52 | NUR ---
PATIENT IS SITTING IN HER CHAIR. FRESH WATER GIVEN. VITALS AND I&OS ARE DONE AND DOCUMENTED. CALL LIGHT IS IN REACH. NO FURTHER NEEDS AT THIS TIME.
--- NOTE | 2021-02-04 19:05 | NUR ---
SHIFT REPORT FROM NURSE HAMILTON. PT UP IN CHAIR, ON CELL PHONE. DENIES NEEDS AT THIS TIME. CALL LIGHT WITHIN REACH.
--- NOTE | 2021-02-04 20:28 | NUR ---
IN ROOM FOR ASSESSMENT AND EVENING MEDS. pt UP IN CHAIR, LEGS ELEVATED. cbg 162 REQUIRING 3UNITS SS INSULIN. VSS. pt REPORTS NO PAIN. CMS INTACT AT BASELINE. pt DENIES FURTHER NEEDS AT THIS TIME. CALL LIGHT WITHIN REACH.
--- NOTE | 2021-02-04 20:30 | NUR ---
ROUNDED CHARGE TO COSIGN INSULIN. pt GETTING BACK INTO BED AT THIS TIME. NO REQUESTS. CALL LIGHT WITHIN REACH. LEGS ELEVATED ON PILLOWS.
--- NOTE | 2021-02-04 22:00 | NUR ---
IN ROOM TO HANG IV ANTIBITOCS. PT IN BED SLEEPING THIS NURSE ENTERS THE ROOM. PT AWAKES TO VOICE. IV INFUSION INFUSING. CALL LIGHT WITHIN REACH.
--- NOTE | 2021-02-04 23:18 | NUR ---
IN ROOM TO D/C IV ANTIBIOTICS SINCE THEY ARE FINSIHED. pt IS SLEEPING AND AWAKES BRIEFLY TO THIS NURSE TOUCHING LEG. CALL LIGHT WITHIN REACH.
--- NOTE | 2021-02-05 02:56 | NUR ---
CHECKED ON PT. PT WAS JUST GETTING BACK TO BED FROM TOILET. URINE HAT EMPTIED, PT DENIES NEEDS AT THIS TIME.
--- NOTE | 2021-02-05 04:21 | NUR ---
IN ROOM TO HANG ANTIBIOTICS. pt ASLEEP THIS NURSE ENTERED ROOM. pt WAKES TO VOICE. IV INFUSING PER ORDER. NO FURTHER NEEDS AT THIS TIME
--- NOTE | 2021-02-05 06:26 | NUR ---
ASSESSMENT COMPLETE. PT UP TO TOILET TO VOID AND ALSO HAD BM. VSS. WOUND DRESSING INTACT AND CMS INTACT. FLAGYL HUNG AND INFUSING WNL. PT REPORTS NO PAIN AT THIS TIME. CALL LIGHT WITHIN REACH.
--- NOTE | 2021-02-05 07:22 | NUR ---
REPORT RECEIVED FROM CARLITA MATTHEW. PT RESTING IN BED. PT REPORTS DR. FLOWER JUST FINISHED HER DRESSING CHANGE. PT DENIES PAIN AND NAUSEA AT THIS TIME AND IS IN THE PROCESS OF ORDERING BREAKFAST. PT DENIES ADDITIONAL REQUESTS OR COMPLAINTS AT THIS TIME. CALL LIGHT WITHIN REACH.
--- NOTE | 2021-02-05 07:31 | NUR ---
MORNING ASSESSMENT AND MEDICAITON DUE. PT RESTING IN BED WITH HEAD OF BED ELEVATED TO 45 DEGREES. PT DENIES PAIN AND NAUSEA. IV TO RIGHT HAND SHOWS SWELLING AND MILD REDNESS, FLUSES EASILY. PT REPORTS IV WAS SORE WITH VANCOMYACIN INFUSION YESTERDAY. WILL CONSULT MD REGARDING FURTHER NEED FOR IV AND PLACE NEW IV LINE IF NEEDED. ASSESSMENT DONE: PT REPORTS SHE IS GENERALLY STEADY ON FEET BUT WOULD LIKE A WALKER TO TAKE HOME TO EASE AMBULATION. LUNG SOUNDS CLEAR. PT DEMONSTRATES USE OF I.S. REACHING 2000ML. PULSE TO LEFT FOOT STRONG. UNABLE TO ASSESS PULSES TO RIGHT FOOT RELATED TO BANDAGING. BANDAGE TO RIGHT FOOT C/D/I WITH CAP REFILL LESS THAN 2 SECONDS. PT REPORTS SENSATION IN TOES AND IS ABLE TO MOVE TOES. PT REPORTS BASELINE NEUROPATHY. PT DENIES SORNESS IN CALVES. PT UP AND MOVING AROUND FREQUENTLY AND DECLINES USE OF SCD. MEDICATIONS GIVEN. PT REPORTS SHE PLANS TO GET UP TO THE CHAIR ONCE BREAKFAST ARRIVES, DECLINES TIME UP TO CHAIR AT THIS TIME. NO ADDITONAL REQUESTS OR COMPLAINTS AT THIS TIME. CALL LIGHT WITHIN REACH.
--- NOTE | 2021-02-05 09:46 | NUR ---
Met with Shira this morning, she states that she is "very happy" with her care. She feels that she will probably be discharged today, she also feels like she has had good pain managment, and she verbalizes an understanding of the medications given to her while in the hospital. Pt. also feels like she understands what she needs to do upon discharge to be successful at home, and she feels "ready" to go home. Pt denies any dificulty with being able to cotton picker medications or pay for medications needed at discharge. She does not have concerns for meeting her needs of daily living at home per her statements to me during this conversaton. I did leave my card with Shira and encouraged her to call should she have any questions or concerns.
--- NOTE | 2021-02-05 09:54 | NUR ---
THIS RN TO ROOM TO CHECK ON PT. PT UP TO CHAIR WORKING WITH STUDENT RN, ZANE. PT DENIES PAIN AND NAUSEA. PT DENIES REQUESTS OR COMPLAINTS AT THIS TIME STATING SHE IS JUST "WAITING TO HEAR FROM THE DOCTOR IF I CAN GO HOME." CALL LIGHT JU RIVERA. PT ENCOURAGED TO CALL FOR ANY REQUESTS.
--- NOTE | 2021-02-05 10:08 | NUR ---
PATIENT UP IN CHAIR. VITALS AND I&O'S DONE BY STUDENT NURSE. CALL LIGHT IN REACH. NO FURTHER NEEDS AT THIS TIME.
[2021-02-05] MEDS ORDERED: ZYVOX600 MG PO (11:25)
[2021-02-05] MEDS ORDERED: METRONIDAZOLE500 MG PO (11:26)
--- NOTE | 2021-02-05 11:30 | NUR ---
Received Rx from Dr. Florian for walker. Faxed to [facility] per pt's request to H&P, DC summary, and face sheet. Attached note requesting they deliver prior to 4 pm when pt plans on dc.
--- NOTE | 2021-02-05 11:37 | NUR ---
THIS RN TO ROOM TO UPDATE PT ON PLAN OF CARE. PT VERBALIZES UNDERSTANDING OF PLAN FOR DISCHARGE AND STATES HER CAN PICK HER UP AROUND 1500. PT DENIES PAIN AND NAUSEA. IV DC'D PER PROTOCOL, OTIS APPLIED. PHARMACIST TO BEDSIDE TO REVIEW MEDICATIONS WITH PT. PT VERBALIZES UNDERSTANDING OF MEDICATIONS AND STATES HER QUESTIONS HAVE BEEN ANSWERED. NO ADDITIONAL REQUESTS OR COMPLAINTS. CALL LIGHT WITHIN REACH.
--- NOTE | 2021-02-05 12:11 | NUR ---
BLOOD SUGAR TAKEN. PT UP TO DRESS SELF, NO ASSISTANCE NEEDED. SLIDING SCALE INSULIN GIVEN. PT RESTING IN CHAIR EATING LUNCH. NO ADDITONAL REQUESTS OR COMPLAINTS. CALL LIGHT WITHIN REACH.
--- NOTE | 2021-02-05 12:50 | NUR ---
Called to check if walker was auther. Todd states she did not receive. RX refaxed with notes. Waited 10 min and called and they did recieve.
--- NOTE | 2021-02-05 13:35 | NUR ---
Spoke with Shira and updated I have asked for walker to be delivered. She states she has time as she is waiting for [facility] to pick her up. Cont. to deny needs and plans on dc this afternoon to home.
--- NOTE | 2021-02-05 14:17 | NUR ---
CONSULTED REGARDING ABX ORDERS, PT NO LONGER HAS AN IV. STATES HE WILL BE CHANGING ABX. AWAITING NEW ORDERS.
--- NOTE | 2021-02-05 14:25 | NUR ---
PT ALERT, ORIENTED AND DRESSED SITTING IN CHAIR. PT IS READY FOR DC, WAITING PATIENTLY FOR DC ORDERS. PHAR HAS BEEN IN, PT FEELS SHE IS READY. GAVE ENCOURAGEMENT, WILL FOLLOW NEEDED
--- NOTE | 2021-02-05 14:46 | NUR ---
AFTERNOON ASSESSMENT DUE. THIS RN TO ROOM. PT UP TO CHAIR. PT DENEIS PAIN AND NAUSEA. PT STEADY ON FEET WITH STAND BY ASSIST AND HAS PACKAGED UP HER BELONGINGS. LUNG SOUNDS CLEAR. HEART TONES REGULAR. RIGHT LOWER EXTREMITY SHOWS DRESSING C/D/I, WITH NO CHANGES FROM THIS MORNING. PT HAS POST OP SHOE IN PLACE FOR COMFORT AND DISCHARGE. UNABLE TO ASSESS PULSES TO RIGHT LOWER EXTREMITY RELATED TO DRESSING. PT REPORTS BASELINE NEUROPATHY. DISCHARGE INSTRUCTIONS REVIEWED WITH PT. PT VERBALZIES UNDERSTANDING OF INSTRUCTIONS, MEDICATIONS AND FOLLOW UP APPOINTMENTS. DR. MCFARLAND STATES HE IS AWIATING A CALL FROM DR. FLOWER REGARDING A CHANGE TO THE ABX RX. AWAITING CALL BACK. PT STATES SHE WAS EXPECTING A WALKER FROM [facility]. CORBY FROM [employer] CALLED. WALKER WAS PREVIOUSLY DELIVERED, RETRIEVED FROM FRONT OF THE HOSPITAL AND DELIVERED TO PT. PT AWAITING NEW INSTRUCTIONS FOR ABX. AT BEDSIDE. NO ADDITIONAL REQUESTS OR COMPLAINTS. CALL LIGHT WITHIN REACH.
[2021-02-05] MEDS ORDERED: FLUOXETINE HCL20 MG PO (15:05)
[2021-02-05] MEDS ORDERED: FLUOXETINE HCL10 MG PO (15:06)
[2021-02-05] MEDS ORDERED: BACTRIM DS TAB1 EACH PO (15:06)
--- NOTE | 2021-02-05 15:20 | NUR ---
NEW RX IN PLACE AND CALLED TO PHARMACY. NEW DISCHARGE INSTRUCTIONS AND CHANGES TO MEDICAITONS REVIEWED WITH PT AND PTS . PT AND VERBALIZE UNDERSTANDING. PT TRANSFERES SELF TO WHEEL CHAIR. WALKER AND ALL PTS PERSONEL BELONGS WHEELED WITH PT FROM MED/SURG. PT DENIES ADDITIONAL REQUESTS OR CONCERNS.
--- NOTE | 2021-02-06 10:48 | OR ---
[facility] [address], [place] [address] Signed DATE OF OPERATION: 02/01/2021 SURGEON: Elmer Flower DPM PREOPERATIVE DIAGNOSES: 1. Diabetic foot ulcer, right foot. 2. Abscess/cellulitis, right foot. POSTOPERATIVE DIAGNOSES: 1. Diabetic foot ulcer, right foot. 2. Abscess/cellulitis, right foot. COMMERCIAL ATTACHE: Lele Ball CRNA. ANESTHESIA: General with local block, right foot. SPECIMEN TO PATHOLOGY: None. Aerobic and anaerobic wound cultures obtained. PROCEDURE IN DETAIL: The patient was brought to the operating room and placed on the table in the supine position. Anesthesia Department administered general anesthetic and the right leg and foot were then prepped and draped in the usual sterile manner and an Esmarch was used for hemostasis. The hemostasis was not achieved with the Esmarch, therefore, this was only left on for 1 or 2 minutes, then removed and the remainder of the procedure performed without tourniquet. Attention was directed to the open wound site dorsal and medial right first metatarsal head area. The necrotic wound measured 7.5 x 3 cm with a small ulcer site plantar right first metatarsal head measuring approximately 0.6 x 0.4 cm. Probing from the plantar ulcer showed that this tract medial and superior connecting with the medial and dorsal wound site. The margins to the dorsal wound site were trimmed, resecting the necrotic margins, then using hand instrumentation, necrotic tissue was debrided from the wound site and the wound margins lifted to expose any necrotic tissue and to explore for any probing or tracking. The wound site was periodically irrigated with the power lavage and then progress judged and remaining necrotic tissue debrided. The debridement also Electronically Signed By: ELMER FLOWER DPM 02/06/21 1048 PATIENT NAME: ASIYA ERIC OPERATIVE REPORT DATE OF : 64 REPORT #: [id number] PHYSICIAN: ELMER FLOWER DPM PCP: JOSE LUIS MIRELES REPORT IS CONFIDENTIAL AND NOT TO BE RELEASED WITHOUT AUTHORIZATION [facility] [address] [place], [place] [address] Signed extended into the first intermetatarsal space, which appeared to have some purulent material and necrotic tissue deep within the intermetatarsal space and this appeared to extend into the plantar compartment. A small incision was made onto the dorsal right hallux reflecting soft tissues medially and laterally to expose additional necrotic tissue and purulent drainage at this site. An incision also extended proximally from the medial aspect of the first metatarsal close to the plantar skin extending proximally about 2-2.5 cm. Soft tissues then reflected to expose some additional necrotic tissue in this area, which was then debrided as well. Debridement carried down to the level of deep fascia without exposing tendon. The tendon sheath was exposed, but this was not opened and did not violate the tendon. The joint capsule was not opened and therefore, this appears to have remained outside of the bone and outside of the tendon. Once the debridement was achieved, the remainder of the irrigation was used with the power lavage to fully irrigate the wound site using a total of 3 L of irrigation. The wound sites were then packed with 0.5 inch plain Nu Gauze packing and which had been soaked in dilute Betadine solution. The surgical site then covered with Adaptic, dry gauze, ABD pad, flexicon, and Coban for mild compression. ESTIMATED BLOOD LOSS: Approximately 30 mL. INTRAOPERATIVE COMPLICATIONS: None. The patient tolerated the procedure and the anesthesia well and left the operating room with vital signs stable and vascular status intact to the toes, right foot as evidenced by capillary refill following the procedure. Elmer Flower DPM DFB/MAKL /[id number] Copies: Electronically Signed By: ELMER FLOWER DPM 02/06/21 1048 PATIENT NAME: ASIYA ERIC OPERATIVE REPORT DATE OF : 64 REPORT #: [id number] PHYSICIAN: ELMER FLOWER DPM PCP: JOSE LUIS MIRELES REPORT IS CONFIDENTIAL AND NOT TO BE RELEASED WITHOUT AUTHORIZATION [address] [place] [address] Signed ~ Electronically Signed By: ELMER FLOWER DPM 02/06/21 1048 PATIENT NAME: ASIYA ERIC OPERATIVE REPORT DATE OF : 64 REPORT #: [id number] PHYSICIAN: ELMER FLOWER DPM PCP: JOSE LUIS MIRELES REPORT IS CONFIDENTIAL AND NOT TO BE RELEASED WITHOUT AUTHORIZATION
== END 2021-02-05 15:20 | disposition home or self-care (01) | DRG 623 ==
LOC: MS 12:05 → DS 12:05 → MS 15:30 → DS 16:27 → MS 16:29 → DS 02-03 09:20 → MS 02-05 15:20
PROVIDERS: Podiatrist Foot Surgery; ADMIT Internal Medicine; ATTEND Internal Medicine
PROC: 0JBQ0ZZ Excision of Right Foot Subcutaneous Tissue and Fascia, Open Approach (ICD-10-PCS; principal; 2021-02-01 14:00)
DX: E11.621 Type 2 diabetes mellitus with foot ulcer (principal); L03.115 Cellulitis of right lower limb; L02.611 Cutaneous abscess of right foot; D69.3 Immune thrombocytopenic purpura; Z20.822 Contact with and (suspected) exposure to COVID-19; L97.519 Non-pressure chronic ulcer of other part of right foot with unspecified severity; E11.628 Type 2 diabetes mellitus with other skin complications; B95.62 Methicillin resistant Staphylococcus aureus infection as the cause of diseases classified elsewhere; E03.9 Hypothyroidism, unspecified; E78.5 Hyperlipidemia, unspecified; G40.909 Epilepsy, unspecified, not intractable, without status epilepticus; F39 Unspecified mood [affective] disorder; E11.42 Type 2 diabetes mellitus with diabetic polyneuropathy; I25.10 Atherosclerotic heart disease of native coronary artery without angina pectoris; D64.9 Anemia, unspecified; Z95.1 Presence of aortocoronary bypass graft; Z79.899 Other long term (current) drug therapy; Z79.4 Long term (current) use of insulin; Z89.422 Acquired absence of other left toe(s)
CPT/HCPCS: 01480; 36415; 73630; 73723; 80048; 80053; 85025; 85651; 96365; 96366; 96376; 97165; A9577; C9803; G0378; J1100; J1650; J1815; J1885; J2250; J2405; J2704; J2765; J2795; J3010; J3370; J7040; J7050; J7121; U0003

== ENCOUNTER 2021-02-08 04:05 | Emergency (ER) | payer OTHER ==
[~2021-02-08] VITALS: Ht 175.3 cm; Wt 104.3 kg
[~2021-02-08 04:05] MED LIST changes: +ALDACTAZIDE 251 EACH PO; +AUGMENTIN 875-1 EACH PO; +BACTRIM DS TAB1 EACH PO; +CLEOCIN HCL300 MG PO; +COQ-10100 MG; +FLUOXETINE HCL10 MG PO; +FLUOXETINE HCL20 MG PO; +KEPPRA500 MG PO; +LEVOTHYROXINE112 MC1 PO; +METRONIDAZOLE500 MG PO; +PROZAC10 MG PO; +PROZAC20 MG PO; +VITAMIN C WITH500 MG PO; +ZIAC 2.5-6.25 MG1 EA PO; +ZYVOX600 MG PO
[2021-02-08] MEDS ORDERED: DOXYCYCLINE HY100 MG PO (06:40)
== END 2021-02-08 07:02 | disposition home or self-care (01) ==
LOC: ED 04:05
DX: R11.2 Nausea with vomiting, unspecified (principal); I10 Essential (primary) hypertension; E11.9 Type 2 diabetes mellitus without complications; I25.2 Old myocardial infarction; Z79.899 Other long term (current) drug therapy; Z79.4 Long term (current) use of insulin
CPT/HCPCS: 80053; 83735; 85025; 96374; 99284-25; J2405; J7030

== ENCOUNTER 2021-11-18 16:11 | Inpatient (IN) | payer OTHER ==
[~2021-11-18] VITALS: Ht 175.3 cm; Wt 100.6 kg
[~2021-11-18 16:11] MED LIST changes: +DOXYCYCLINE HY100 MG PO
--- NOTE | 2021-11-18 19:00 | NUR ---
RECEIVED REPORT FROM ED RN.
--- NOTE | 2021-11-18 19:05 | NUR ---
ADMISSION COMPLETED. PATIENT IS RESTING IN BED. PATIENT DENIES ANY NEEDS. CALL LIGHT IN REACH.
--- NOTE | 2021-11-18 21:22 | NUR ---
PATIENT ASSESMENT COMPLETED. PATIENT DENIES ANY PAIN. RLE DRESSING PLACE ON WOUND PER MD ORDER. PICS TAKEN OF WOUND AND PLACED ON CHART. PATIENTS SCHEDULED MEDICATIONS GIVEN PER ORDER. PATIENT ASSISTED TO THE RESTROOM A SBA. PATIENT WAS RICCI TO VOID. PATIENT IS BACK IN BED RESTING. PATIENT PROVIDED WITH SANDWICH BOX. PATIENTS IV INFUSING PER ORDER. PATIENT DENIES ANY FURTHER NEEDS. CALL LIGHT IN REACH.
--- NOTE | 2021-11-18 22:54 | NUR ---
PATIENT IS RESTING IN BED WITH EYES CLOSED, RR 17. IV ABX INFUSING PER ORDER. PATIENTS CALL LIGHT IN REACH.
--- NOTE | 2021-11-19 00:50 | NUR ---
PATIENT IS RESTING IN BED WITH EYES CLSOED, RR 19. CALL LIGHT IN REACH.
--- NOTE | 2021-11-19 03:03 | NUR ---
PATIENT ASSISTED TO THE RESTROOM A SBA. PATIENT WAS ABLE TO VOID. PATIENT IS BACK IN BED RESTING. PATIENTS VITALS TAKEN AND RECORDED. INTAKE AND OUTPUT RECORDED. SCHEDULED ABX INFUSING PER ORDER. PATIENT DENIES ANY NEEDS. CALL LIGHT IN REACH.
--- NOTE | 2021-11-19 06:34 | NUR ---
PATIENTS VITALS TAKEN AND RECORDED. INTAKE AND OUTPUT RECORDED. IV ANX COMPLETED INFUSING. PATIENT IS NOW SL. PATIENT DENIES ANY PAIN. SCHEDULED MEDICATIONS GIVEN PER ORDER. PATIENT DENIES ANY NEEDS. CALL LIGHT IN REACH.
--- NOTE | 2021-11-19 06:59 | NUR ---
DR. FLOWER IN THE ROOM. PATIENTS DRESSING CHANGED. PATIENT TOLERATED DRESSING CHANGE WELL.
--- NOTE | 2021-11-19 07:10 | NUR ---
Report received from Jalyn Corral+Ethan resting in bed, IVF infusing WNL. SCDs in place. No needs at this time, will continue plan of care
--- NOTE | 2021-11-19 09:00 | NUR ---
Scheduled medications administered, assessment complete, pt alert and oriented and denies pain or needs at this time. IV ABX infusing.
[2021-11-19] MEDS ORDERED: AMOX TR-K CLV1 EAC1 PO (09:23)
[2021-11-19] MEDS ORDERED: LEVEMIR FL100 UNIT/2 SUB-Q (09:25)
[2021-11-19] MEDS ORDERED: LEVOTHYROXINE125 MCG PO (09:26)
[2021-11-19] MEDS ORDERED: SPIRONOLACTONE1 EACH PO (09:28)
--- NOTE | 2021-11-19 10:10 | NUR ---
MED REC COMPLETE
--- NOTE | 2021-11-19 10:20 | NUR ---
1020-1130In room to assist with PICC line insertion.
--- NOTE | 2021-11-19 11:44 | NUR ---
PICC INSERTION NOTE. ORDERS RECIEVED TO EVALUATE ASIYA FOR POSSIBLE PICC INSERTION. AFTER REVIEWING THE CHART AND INTERVIEWING THE PATIENT, NO ABSOLUTE CONTRAINDICATIONS WERE FOUND. ASIYA HAS HAD OTHER PICC LINES IN THE PAST AND IS FAMILIAR WITH THEIR CARE AND MATINANCE BUT WE REVIEWED RISKS AND COMPLICATIONS OF PICC INSERTION WITH HER ANYWAY. INFORMED CONSENT WAS SIGNED PRIOR TO THE START OF THE PROCEDURE. THE RIGHT ARM WAS EVALUATED WITH U/S AND THE RIGHT BASILIC VEIN WAS FOUND TO BE LARGE ENOUGH TO ACCOMIDATE A 4 FR PICC. PRIOR RECORDS WERE REFERENCED PRIOR TO TRIMMING THE LINE. THE RIGHT BASILIC VEIN WAS ACCESSED AND THERE WERE NO DIFFICULTIES ADVANCING THE GUIDE WIRE, INTRODUCER, OR PICC. SHERLOCK TRACKING AND 3CG TPS LICENSED MENTAL HEALTH PROFESSIONAL WERE USED DURING INSERTION AND SHOWED THE LINE IN A CENTRAL LOCATION. A CXR WAS TAKEN WHICH SHOWS THE TIP OF THE PICC SUPERIMPOSED OVER THE RIGHT ATRIA. THE DECISION IS MADE TO WITHDRAW THE LINE 2 CM AND REPEAT CXR AFTER DISCUSSING CARE WITH DR FORTE. EDUCATION MATERIALS REGARDING CARE OF PICC LINES WERE GIVEN TO ASIYA AND SHE UNDERSTANDS SHE NEEDS TO ASK US IF SHE HAS ANY QUESTIONS RELATED TO HER PICC.
--- NOTE | 2021-11-19 12:15 | NUR ---
Scheduled PO ABX and SS insulin administered. Pt A+O. Ambulates SBA to BR. Back to bed with SCDs in place
--- NOTE | 2021-11-19 13:19 | NUR ---
CALL WORKERJalyn CORRALI IN TAKING VS, PT ALERT, ORIENTED AND SEEMS IN GOOD SPIRITS. STAYED JUST A MOMENT, GAVE BLESSING AND WILL FOLLOW NEEDED
--- NOTE | 2021-11-19 13:58 | NUR ---
IV ABX infusing. Pt resting in bed, lunch tray cleared.
--- NOTE | 2021-11-19 14:54 | NUR ---
PATIENT SITTING UP IN BED, IN ROOM. VITALS AND I&O'S CHARTED. FRESH WATER GIVEN. CALL LIGHT IN REACH. NO FURTHER NEEDS AT THIS TIME.
--- NOTE | 2021-11-19 15:30 | NUR ---
Scheduled medications administered, pt resting in bed with no needs. at bedside, education provided regarding PICC line usage and care, IV ABX. Questions answered. No further needs.
--- NOTE | 2021-11-19 17:15 | NUR ---
Scheduled medications administered. IVF ABX infusing. SS insulin provided. PO flagyl given. Dinner tray cleared.
--- NOTE | 2021-11-19 17:57 | NUR ---
Spoke with Shira. She reside with her spouse in [place]. Has 4 steps into her home. Denies issues getting into home with foot wound. Has a walker and a shower chair, but does not use. Plans on dc to home with spouse when antibiotics are completed.
--- NOTE | 2021-11-19 18:15 | NUR ---
PATIENT UP TO BATHROOM THEN TO WHEELCHAIR TO GO TO MRI, SBA. VITALS AND I&O'S CHARTED. CALL LIGHT IN REACH. NO FURTHER NEEDS AT THIS TIME.
--- NOTE | 2021-11-19 19:30 | NUR ---
PATIENT BACK FROM MRI. PATIENT IS UP TO RECLINER NO NEEDS NOTED. PATIENT DENIES ANY NEEDS. CALL LIGHT IN REACH.
--- NOTE | 2021-11-19 20:49 | NUR ---
PATIENT ASSESEMETN COMPLETED. PATIENTS VITALS TAKEN AND RECORDED. INTAKE AND OUTPUT RECORDED. IV ABX INFUSING PER ORDER. PATIENT DENIES ANY PAIN. PATIENTS SCHEDULED MEDICATION GIVEN PER ORDER. PATIENTS PICC IN [facility] FLUSHES WELL AND HAS BLOOD RETURN. PATIENT DENIES ANY FURTHER NEEDS. CALL LIGHT IN REACH.
--- NOTE | 2021-11-19 23:32 | NUR ---
PATIENT ASSISTED TO THE RESTROOM A SBA. PATIENT WAS ABLE TO VOID AND HAVE BM. PATIENT IS BACK IN BED RESTING. DRESSING ON LLE NOTED TO HAVE DRAINAGE THROUGH SOCK. PATIENTS DRESSING REINFORCED AND SOCK CHANGED. PATIENT DENIES ANY PAIN. NO FURTHER NEEDS NOTED. ABX INFUSING IN PICC PER ORDER. CALL LIGHT IN REACH.
--- NOTE | 2021-11-20 00:05 | NUR ---
PATIENT IS NOW NPO.
--- NOTE | 2021-11-20 01:26 | NUR ---
PATIENT GIVEN SCHEDULED MEDICATIONS PER ORDER. PATIENT DENIES ANY PAIN. PATIENT DENIES ANY NEEDS. CALL LIGHT IN REACH.
--- NOTE | 2021-11-20 02:29 | NUR ---
PATIENTS SCHEDULED ABX INFUSING INTO PICC LINE PER ORDER. PICC LINE FLUSHES WELL AND HAS BLOOD RETURN. PATIENT DENIES ANY PAIN. PATIENT DENIES ANY NEEDS. CALL LIGHT IN REACH.
--- NOTE | 2021-11-20 04:19 | NUR ---
PATIENT ASSISTED TO THE RESTROOM A SBA. PATIENT IS BACK IN BED RESTING. PATIENT DENIES ANY NEEDS. CALL LIGHT IN REACH.
--- NOTE | 2021-11-20 05:02 | NUR ---
VITALS TAKEN AND RECORDED. PATIENTS INTAKE AND OUTPUT RECORDED. SURGICAL WIPE DOWN COMPLETED. PATIENT DENIES ANY PAIN. ALL PATIENTS QUESTIONS ANSWERED. PATIENT DENIES ANY NEEDS. CALL LIGHT IN REACH.
--- NOTE | 2021-11-20 06:32 | NUR ---
PATIENT OFF THE FLOOR TO SURGERY.
--- NOTE | 2021-11-20 07:14 | NUR ---
Report received from Ellis ZAZUETA. Pt currently in OR. Will continue plan of care.
--- NOTE | 2021-11-20 07:47 | NUR ---
PATIENT IS IN SURGERY.
--- NOTE | 2021-11-20 08:28 | NUR ---
11/20/21 0828 LEONARDO VILLARREAL 0819-PATIENT ARRIVES TO PACU ON 10L VIA MASK. PATIENT IS NONAROUSABLE. RN AT BEDSIDE DOING JAW THRUST TO MAINTAIN OPEN AIRWAY. ORAL AIRWAY IN PLACE. RESP EVEN AND UNLABORED.
--- NOTE | 2021-11-20 09:10 | NUR ---
Pt returns from surgery via stretcher. Able to transfer self to bed, 3rd toe amputation with gauze, marla wrap. Elevated on pillows. SCDs in place. Pt is drowsy but oriented. VSS, PICC line flushes WNL with blood return noted. Dressing intact. CPOX in place. Pt has not had any PO intake at this time, drowsy, PO meds held at this time. CBG WNL. Will reassess shortly
--- NOTE | 2021-11-20 11:50 | NUR ---
Post operative vitals complete. Scheduled medications administered. Pt states no needs, no pain. On room air. Cpox in place
--- NOTE | 2021-11-20 12:54 | NUR ---
PATIENT IS RESTING IN BED AND DOES NOT NEED ANYTHING ELSE AT THIS TIME. CALL LIGHT IN REACH.
--- NOTE | 2021-11-20 13:16 | NUR ---
ON ADMISSION, THE RN PUT IN REFERRAL FOR NUTRITION. PATIENT HAS DIABETES. PATIENT STATES SHE HAS NOT BEEN CHECKING HER BLOOD SUGARS AT HOME. SHE DOES "WATCH WHAT SHE EATS" AND READS FOOD LABELS LOOKING AT THE GRAMS OF CARBS. SHE TRIES TO STICK TO NO MORE THAN 50 GRAMS PER MEAL. SHE MET WITH A LAYOUT FORMER A FEW YEARS AGO. I EXPLAINED THAT WE HAVE OUTPATIENT DIABETES EDUCATION SERVICES HERE, AND IF SHE NEEDS A REFRESHER, JUST HAVE HER PCP SEND A REFERRAL TO US. SHE PLANS TO MEET WITH HER PCP JOSE LUIS MIRELES IN NOVEMBER. PATIENT STATES SHE IS NOT HUNGRY FOR LUNCH BUT NURSING BROUGHT IN A SUGAR-FREE PUDDING AND SOME CRACKERS FOR A SNACK SINCE PATIENT WAS NPO THIS MORNING. PATIENT HAS NO FURTHER DIET/NUTRITION QUESTIONS OR CONCERNS RIGHT NOW. WILL REMAIN AVAILABLE IF NEEDED.
--- NOTE | 2021-11-20 14:14 | NUR ---
PT HAD SURGERY THIS AM, SLEEPING AT THE MOMENT. WILL CHECK BACK
--- NOTE | 2021-11-20 16:00 | NUR ---
Spoke with Shira. Tolerated surgery well. Denies needs.
--- NOTE | 2021-11-20 16:30 | NUR ---
Medications administered, IV ABX infusing, PICC line WNL. Pt states no other needs.
--- NOTE | 2021-11-20 17:15 | NUR ---
Scheduled medications, insulin administered. Dr Mckeon in room to change dressing. Pt reports no pain or needs. CPOX in place.
--- NOTE | 2021-11-20 19:55 | NUR ---
REPORT RECEIVED FROM CARLITA BRYAN. pt RESTING IN BED BED. RIGHT FOOT ELEVATED ON PILLOWS. IV ANTIBIOTIC INFUSING PICC LINE WNL. pt DENIES PAIN. SPO2 WNL ON RA. CPOX IN PLACE. CALL LIGHT IS WITHIN REACH. pt DENIES REQUESTS AT THIS TIME.
--- NOTE | 2021-11-20 20:28 | NUR ---
IN pt ROOM FOR SCHEDULED MEDICATION ADMINISTRATION. PICC LINE FLUSHED WNL, BRISK BLOOD RETURN. IV SITE SL WNL. IV ANTIBIOTIC INFUSING. CBG WNL. pt DENIES PAIN. ASSESSMENT COMPLETE. NO SENSATION IN RIGHT FOOT AT TOES, TINGLING IN FOOT. RIGHT LEG ELEVATED. SCDS ON. pt DENIES TOILETING NEEDS. CALL LIGHT WITHIN REACH. NO ADDITIONAL REQUESTS.
--- NOTE | 2021-11-20 22:41 | NUR ---
CHECKED ON pt. RESTING IN BED WITH EYES CLOSED. BREATHING UNLABORED. SPO2 95% ON RA, HR 55, CPOX IN PLACE.
--- NOTE | 2021-11-21 01:53 | NUR ---
IV ALARMING, ANTIBIOTIC INFUSING PICC LINE WNL. SBA TO RESTROOM FOR VOID AND BACK TO BED, CONCENTRATED VOID IN TOILET 625 MLS. ASSESSMENT COMLETE. pt HAS NUMBNESS AND TINGLING BLE, STRONG PEDAL PULSES BILATERALLY. DRESSING CDI. VSS. CALL LIGHT IN REACH. NO ADDITIONAL REQUESTS. SCDS ON, RIGHT LEG ELEAVTED ON PILLOWS.
--- NOTE | 2021-11-21 03:38 | NUR ---
CHECKED ON pt. RESTING IN BED WITH EYES CLOSED. BREATHING UNLABORED. SPO2 WNL ON RA, CPOX ON.
--- NOTE | 2021-11-21 06:31 | NUR ---
DRESSING CHANGE COMPLETED BY DR FLOWER. PT UP TO BR AND BACK TO BED. VS AND I&O COMPLETE. ICE WATER PROVIDED. NO OTHER NEEDS. CALL LIGHT IN REACH.
--- NOTE | 2021-11-21 06:56 | NUR ---
IN pt ROOM FOR SCHEDULED MEDICATION ADMINISTRATION. pt AWAKE SITTING UP IN BED. BREAKFAST ORDER TAKEN AND PLACED.
--- NOTE | 2021-11-21 09:18 | NUR ---
PT. VOMITING 400ML OF CLEAR FLUID AFTER EATING A BITE OF BREAKFAST. SHE REFUSES ANTI-EMETIC MEDS. INSULIN HELD DUE TO NOT EATING AND BG OF 126. PT. DENIES FURTHER NEEDS AND LEFT RESTING WITH CALL LIGHT IN REACH.
--- NOTE | 2021-11-21 09:52 | NUR ---
REPORT RECIEVED FROM NIGHT RN AND PT. CARE RESUMED. PT. IS ALERT AND ORIENTED TO ALL. SHE DENIES PAIN. RT. FOOT DRESSING IS C.D.I. AND WRAPPED BY . PT. ABLE TO AMBULATE TO THE CHAIR FROM BED WITH SBA. PICC DRESSING INTACT, BRISK BLOOD RETURN AND FLUSHES EASILY. IV SITE WNL. PT. ON ROOM AIR. DISCUSSED MEDS, SAFETY AND POC. LEFT RESTING WITH CALL LIGHT IN REACH.
--- NOTE | 2021-11-21 10:59 | NUR ---
PT. REPORTS NAUSEA. AMBULATED INDEPENDENTLY TO THE BATHROOM. WILL ADMIN. ANTI-EMETIC MED.
--- NOTE | 2021-11-21 13:04 | NUR ---
PT SITTING UP IN CHAIR WITH BOTH LEGS ELEVATED. SHE IS ALERT, ORIENTED AND HOPES TO DC LATER TODAY. PT CHEERFUL, GAVE BLESSING. RN CRISTOBAL IN TO GO OVER MEDS WITH PT.
--- NOTE | 2021-11-21 14:35 | NUR ---
ROUNDING ON PT. SHE DENIES PAIN OR NAUSEA AT THIS TIME. ADMIN. IV ABX. RT FOOT DRESSING C.D.I. LEFT RESTING WITH CALL LIGHT IN REACH.
--- NOTE | 2021-11-21 15:24 | NUR ---
PT. LABS DRAWN BY BUSINESS PRACTICES SUPERVISOR FROM PIC. AWAITING ELIZABETH
--- NOTE | 2021-11-21 16:51 | NUR ---
ALL DISCHARGE INSTRUCTIONS REVIEWED AND QUESTIONS ANSWERED. PT. LEFT WITH ALL BELONGINGS WITH SURVEILLANCE OBSERVER VIA WHEELCHAIR. SHE DENIES PAIN AND VITALS STABLE.
--- NOTE | 2021-11-22 08:53 | OR ---
[facility] [address] [place], [place] [address] Signed DATE OF OPERATION: 11/20/2021 SURGEON: Elmer Flower DPM PREOPERATIVE DIAGNOSES: 1. Diabetic foot ulcer, right foot. 2. Cellulitis/abscess, right foot. 3. Osteomyelitis, right foot. POSTOPERATIVE DIAGNOSES: 1. Diabetic foot ulcer, right foot. 2. Cellulitis/abscess, right foot. 3. Osteomyelitis, right foot. CRUCIBLE PACKER SURGEON: Denae Pérez DPM ANESTHESIA: IV general with local block, right foot. EEG TECHNICIAN: Lele Ball CRNA SPECIMEN TO PATHOLOGY: Bone and soft tissue, right third digit. PROCEDURES: 1. Amputation of right third digit. 2. Debridement of diabetic ulcer, right foot. DESCRIPTION OF PROCEDURE: The patient was brought to the room and placed on the table in the supine position. Anesthesia Department administered IV sedation, after which local block was given to the right foot using a total of 10 mL of 1:1 mixture of 2% lidocaine plain and 0.5% ropivacaine plain. The right leg and foot were then prepped and draped in the usual sterile manner and an Esmarch was used for hemostasis. Attention was initially directed to the right third digit. Preoperative x-rays showed osteomyelitis to the base of the proximal phalanx of the right 3rd digit and a large amount of necrotic tissue was already noted on the lateral side of the right third Electronically Signed By: ELMER FLOWER DPM 11/22/21 0853 PATIENT NAME: ASIYA ERIC OPERATIVE REPORT DATE OF : 64 REPORT #: [id number] PHYSICIAN: ELMER FLOWER DPM PCP: JOSE LUIS MIRELES REPORT IS CONFIDENTIAL AND NOT TO BE RELEASED WITHOUT AUTHORIZATION [facility] [address] [place], [place] [address] Signed digit. At this time, an incision was made circumferentially around the base of the right third digit. Soft tissues then reflected proximally and the digit removed in toto and sent for pathology. At this time, a significant amount of necrotic tissue was noted within the foot at this site and a small incision made dorsally 1.5-2 cm from the toe amputation site towards the metatarsal and a small amount plantarly about 1 cm in length, this allowed better access to the area of infection and necrotic tissue; however, a large amount of necrotic tissue also noted plantarly around the ulcer site, therefore the necrotic tissue at the ulcer site excised. This showed significant necrotic tissue surrounding this area, therefore the incision connected from the toe amputation site plantar to the ulcer and then a large amount of necrotic tissue noted extending proximal at the plantar aspect of foot and medially towards the second digit and under second metatarsal. This area debrided and irrigated with copious amounts of normal saline, then re-examined noting that the necrotic tissue and purulence had been eliminated. At this time, the exposed metatarsal heads for second and third metatarsals, which had necrotic tissue and purulence surrounding them are assumed to have osteomyelitis; however, since this was planned as a staged procedure with the primary goal of eliminating the necrotic tissue, then coming back to revise the procedure later, the metatarsal heads were not excised at this time. At this time, the antibiotic beads were placed throughout the surgical site and soft tissues were brought together and closed as much as possible, leaving the area of the toe amputation open and 0.5-inch plain Nu-Gauze packing placed into the surgical site at this location. Dressings then applied consisting of Adaptic, Betadine-soaked gauze, Kerlix fluffs, ABD pad, and Kerlix roll with Coban for mild compression. INTRAOPERATIVE COMPLICATIONS: None. ESTIMATED BLOOD LOSS: Less than 10 mL. NOTE: Patient tolerated the procedure and the anesthesia well and left the Operating room with vital signs stable and vascular status intact to the right foot as evidenced by hyperemia with removal of the esmarch. Elmer Flower DPM Electronically Signed By: ELMER FLOWER DPM 11/22/21 0853 PATIENT NAME: ASIYA ERIC OPERATIVE REPORT DATE OF : 64 REPORT #: [id number] PHYSICIAN: ELMER FLOWER DPM PCP: JOSE LUIS MIRELES REPORT IS CONFIDENTIAL AND NOT TO BE RELEASED WITHOUT AUTHORIZATION [address] [address] Signed TAMERA/EMERY /[id number] Copies: ~ Electronically Signed By: ELMER FLOWER DPM 11/22/21 0853 PATIENT NAME: ASIYA EIRC VICENTE OPERATIVE REPORT DATE OF : 64 REPORT #: [id number] PHYSICIAN: ELMER FLOWER DPM PCP: JOSE LUIS MIRELES REPORT IS CONFIDENTIAL AND NOT TO BE RELEASED WITHOUT AUTHORIZATION
--- NOTE | 2021-11-25 15:00 | PATH ---
[facility] [address] [place], [place] [address] Signed SPECIMEN(S): A PRODUCTS OF DEBRIDEMENT RIGHT FOOT SPECIMEN SOURCE: A. PRODUCTS OF DEBRIDEMENT RIGHT FOOT CLINICAL HISTORY: Open area of right foot; history of diabetes FINAL PATHOLOGIC DIAGNOSIS: Products of debridement right foot, amputation: - Fragments of skin, soft tissue, and bone with ulceration and gangrenous necrosis. - Acute inflammation present at soft tissue resection margin. DDF:cml:C2NR MICROSCOPIC EXAMINATION: Histologic sections of all submitted blocks are examined by light microscopy. These findings, together with the gross examination, support the pathologic diagnosis. GROSS DESCRIPTION: The specimen, labeled "Shira Campos," and designated on the requisition "products of debridement right foot," is received in formalin and consists of 4.6 x 2.3 x 1.8 cm amputated toe. The skin surface is pale pink with a white nail and moderate skin. An area of gary-green discoloration is present adjacent to the resection margin measuring 1.8 x 0.4 cm. Viability of the soft tissue resection margin cannot be grossly assessed. The margin is inked blue. Marketing Proposal Coordinator sections are submitted in cassettes (A1-A2) and placed into [employer] prior to processing. FB (under the direct supervision of a pathologist) The Gross Description was prepared using a voice recognition system. The report was reviewed for accuracy; however, sound-alike word errors, addition and/or deletions may occur. If there is any question about this report, please contact Client Services. PERFORMING LABORATORY: The technical component was performed by [facility], [address] [place] [id number] (Change Consultant: Halle Davenport MD; CLIA# [id number]). [facility], [address] [facility]. 107, PATIENT NAME: SHIRA CAMPOS PATHOLOGY DATE OF : 64 REPORT #: [id number] PHYSICIAN: EMERSON PATHOLOGY PCP: JOSE LUIS MIRELES REPORT IS CONFIDENTIAL AND NOT TO BE RELEASED WITHOUT AUTHORIZATION [facility] [address] [place] [address] [place] [address] Signed [place] [place] [id number] (CLIA# [id number]). Diagnostician: Brijesh Shepherd DO Pathologist Electronically Signed 11/25/2021 Copies: ~ PATIENT NAME: SHIRA CAMPOS PATHOLOGY DATE OF : 64 REPORT #: [id number] PHYSICIAN: EMERSON PATHOLOGY PCP: JOSE LUIS MIRELES REPORT IS CONFIDENTIAL AND NOT TO BE RELEASED WITHOUT AUTHORIZATION
== END 2021-11-21 16:52 | disposition home or self-care (01) | DRG 617 ==
LOC: ED 16:11 → MS 18:42
PROVIDERS: Podiatrist Foot Surgery; ADMIT Internal Medicine; ATTEND Internal Medicine
PROC: 0JBQ0ZZ Excision of Right Foot Subcutaneous Tissue and Fascia, Open Approach (ICD-10-PCS; 2021-11-20)
PROC: 0Y6T0Z1 Detachment at Right 3rd Toe, High, Open Approach (ICD-10-PCS; principal; 2021-11-20 06:45)
DX: E11.69 Type 2 diabetes mellitus with other specified complication (principal); M86.8X7 Other osteomyelitis, ankle and foot; M00.071 Staphylococcal arthritis, right ankle and foot; I25.10 Atherosclerotic heart disease of native coronary artery without angina pectoris; Z20.822 Contact with and (suspected) exposure to COVID-19; I12.9 Hypertensive chronic kidney disease with stage 1 through stage 4 chronic kidney disease, or unspecified chronic kidney disease; N18.30 Chronic kidney disease, stage 3 unspecified; E11.621 Type 2 diabetes mellitus with foot ulcer; E11.628 Type 2 diabetes mellitus with other skin complications; E11.22 Type 2 diabetes mellitus with diabetic chronic kidney disease; E11.65 Type 2 diabetes mellitus with hyperglycemia; G40.909 Epilepsy, unspecified, not intractable, without status epilepticus; E03.9 Hypothyroidism, unspecified; E11.40 Type 2 diabetes mellitus with diabetic neuropathy, unspecified; F39 Unspecified mood [affective] disorder; D69.6 Thrombocytopenia, unspecified; I25.2 Old myocardial infarction; Z95.1 Presence of aortocoronary bypass graft; Z90.710 Acquired absence of both cervix and uterus; Z79.4 Long term (current) use of insulin; Z79.899 Other long term (current) drug therapy
CPT/HCPCS: 01480; 36569; 71045; 73630; 73723; 80048; 80053; 80202; 82565; 84520; 85025; 86140; A9270; A9577; C1713; C1751; C9803; J0330; J0461; J0692; J1100; J1815; J1885; J2250; J2405; J2704; J2765; J2795; J3010; J3370; J7060; J7121; U0003